=== PATIENT | female | born 1995 | race Caucasian/White ===

== ENCOUNTER → 2021-07-20 12:02 | Outpatient (CLI) | payer OTHER, SELFPAY ==
[2021-07-20 13:04] LABS: COVID19 -Nasal RAPID Negative (Negative)
== END ==
PROVIDERS: PCP Family Medicine; Visit Provider Obstetrics & Gynecology
DX: Z01.812 Encounter for preprocedural laboratory examination (principal); Z20.822 Contact with and (suspected) exposure to COVID-19
CPT/HCPCS: 87635

== ENCOUNTER 2021-07-21 09:04 | Day surgery (SDC) | payer OTHER, SELFPAY ==
[2021-07-19 10:34] VITALS: BMI 26.1
[2021-07-21] VITALS (12 sets, daily range): BP systolic 111–144; BP diastolic 51–87; PULSE 79–109; RESP 12–20; TEMP 36.3–37.3; O2SAT 95–99; BMI 25.7
--- NOTE | 2021-07-21 | PATH_ITS ---
[facility] Accession Number: [id number] . 01 Material submitted: . fallopian tube - BILATERAL FALLOPIAN TUBES . 02 Diagnosis: Bilateral Fallopian Tubes: Fallopian tubes x2, complete cross sections; negative for atypia or malignancy. MRV 07/26/2021 1151 Local . 02 Electronically signed: . Amy Ruiz MD, Pathologist NPI- [id number] . 01 Gross description: . The specimen is received in formalin, labeled bilateral fallopian tubes, and consists of two fimbriated fallopian tubes measuring 7.7 x 0.6 cm and 7.2 x 0.6 cm. Sectioning the fallopian tubes reveals patent stellate lumens free of any gross abnormalities. The specimen is representatively submitted as follows: A1: Bisected fimbria and traffic representative cross-sections of shorter fallopian tube. A2: Bisected fimbria and traffic representative cross-sections of longer fallopian tube. ([id number]) /FRR 07/23/2021 1119 Local . 02 Pathologist provided ICD-10: Z30.2 . 02 CPT . 039330 Specimen Comment: A courtesy copy of this report has been sent to [phone] Performed at: [address] [facility] [address], [place], [place] [id number] MD Misael Franco MD Phone: [phone] Performed at: 02 [facility] [address] [place], [place] [id number] MD Key Herzog MD Phone: [phone]
[2021-07-21] MEDS: LACTATED RINGERS 1,000 ML 100 ML IV ×2 (09:36→12:42)
[2021-07-21] MEDS: ACETAMINOPHEN IV 1,000 MG/100 ML VIAL 400 MG IV (09:39)
--- NOTE | 2021-07-21 10:22 | P.OP.PRE_ITS ---
Pre-operative Note COVID-19 COVID-19 status: Negative Result date/Date tested (Pos, Neg/Pending): 07/21/21 Criteria for continued procedure: Non-surgical alternatives not available or appropriate per current SOC Interval Note History & Physical reviewed/Exam performed by Physician: Yes Changes to H&P: No H&P completed within 30 days and has changed as indicated here:: No anticoa gulation as per cardiology, cleared for SCDs bilaterally.
--- NOTE | 2021-07-21 11:52 | SUR.OPER ---
Lithotomy on padded OR bed, head on pillow, arms secured on padded arm boards at <90 degrees abduction. Legs secured in padded yellow fins stirrups.
[2021-07-21] MEDS: LIDOCAINE 1% 20 ML INJ (12:09)
--- NOTE | 2021-07-21 12:30 | PM.GYNOP.1 ---
Operative Date/Time/Diagnoses Date of procedure: 07/21/21 Time of procedure: 11:00 Pre-op diagnosis: desires permanent sterilization Post-op diagnosis: same Procedure & Clinicians Procedure: Procedures Operation Date: 07/21/21 10:15 Actual Procedure Side Surgeon p Laparoscopic Salpingectomy Bilateral Amita King MD Indications: desires permanent sterilization Surgeon: Amita King Anesthesia Type: General Operative Notes Findings: Normal vulva, vagina, cervix, uterus, tubes, and ovaries. Normal abdominal survey pre and postoperatively. Closure Type: primary Specimen(s): left tube and right tube Applied: catheter Procedure in detail: After proper consents were obtained, the patient was taken to the operating room. General anesthesia was induced, and she was placed in the dorsal lithotomy position and prepped and draped in the normal sterile fashion. A yuen catheter was placed, and a speculum placed in the patient's vagina. A single tooth tenaculum was applied to the anterior lip of the cervix, and hegar dilators used to dilate the cervix to 6mm with gentle pressure. A uterine manipulator was gently inserted and the balloon inflated to 5ccs. The tenaculum and speculum were removed from the vagina. Attention was then turned to the abdomen, where 1cc of .25% marcaine with epinephrine was used to infiltrate the skin just below the umbilicus. A scalpel was used to make a 5mm incision, the anterior abdominal wall was elevatedl, and a Veress needle gently inserted into the abdomen. Intraperitoneal placement was confirmed with a drop of normal saline passed through the veress needle with gravity, and CO2 used to insufflate the abdomen to 15mmHg. A 5mm trocar and sleeve were placed into the abdomen through this incision under direct visualization, and intraperitoneal placement was confirmed visually with insertion of the laparoscope. Abdominal survey at this time was normal, and lateral ports were placed under direct visualization. These were placed on the left and right, 8cm from the umbilicus and after infiltration of 1mm of local anesthetic as above. The patient was placed in trendelenburg position, and a blunt probe used to gently push the bowel out of the pelvis. The ovaries and fallopian tube remnants appeared normal bilaterally. A atraumatic grasper was used to elevate the left fallopian tube, and the powerseal device was used to amputate the tube, which was removed from the abdomen. The same process was performed on the right fallopian tube, which was similarly removed from the abdomen. Hemostasis at the operative sites assured, and a repeat abdominal survey was normal. The laparoscope was removed from the abdomen, the insufflating gas allowed to escape, and the ports removed. An interrupted suture was used at the mini-laparotomy to close the subcutaneous space in an interrupted fashion, and the skin at all 3 incisions closed with 4-0 biosyn, then covered with steri strips and bandages. The yuen catheter was removed from the bladder. The patient tolerated the procedure well, all counts were correct, and a test was negative on admission. The patient was transported to PACU in stable condition. IVF: 1000ccs UOP: 200ccs clear urine EBL: 5ccs Complications: none Post-operative Condition: stable Disposition: PACU Plan for aftercare: Home
[2021-07-21] MEDS: MEPERIDINE 50 MG/ML INJ 12.5 MG IV (12:45)
[2021-07-21] MEDS: ONDANSETRON 4 MG/2 ML INJ IV ×2 (12:45→13:13)
[2021-07-21] MEDS: OXYCODONE/ACETAMINOPHEN 5/325 TABLET 1 TAB PO (13:07)
--- NOTE | 2021-07-21 13:51 | SUR.PHASEII ---
pt given discharge instructions . pt denies any pain upon discharge . Pt to be discharged with mother.
== END 2021-07-21 13:59 | disposition home or self-care (01) ==
LOC: OR 09:06 → AC 09:09
PROVIDERS: PCP Family Medicine; Referring Provider Obstetrics & Gynecology; Visit Provider Obstetrics & Gynecology
PROC: 0UT74ZZ Resection of Bilateral Fallopian Tubes, Percutaneous Endoscopic Approach (ICD-10-PCS; CPT 58661; principal; 2021-07-21 10:15)
DX: Z30.2 Encounter for sterilization (principal)
CPT/HCPCS: 58661; 81025; J0131; J1100; J1885; J2175; J2250; J2405; J2704; J3010